=== PATIENT | female | born 1960 | race Caucasian/White ===

== ENCOUNTER 2016-07-18 06:40 | Outpatient (CLI) | payer MEDICARE, MEDICAID ==
[~2016-07-18] VITALS: Ht 165.1 cm; Wt 64.1 kg
[2016-07-18] VITALS (13 sets, daily range): BP systolic 143–164; BP diastolic 76–96; PULSE 66–82
[~2016-07-18 06:40] MED LIST: ASPIRIN E.C. 8181 MG PO; CARDIZEM 30MG T30 MG PO; DESYREL DIVIDO150 M1 PO; KLONOPIN 1MG1 MG PO; LYRICA 100MG C100 M1 PO; PRILOSEC 20MG20 MG PO; PRISTIQ100 MG PO; SOMA 350MG350 MG/TAB PO; ULTRAM 50MG TAB50 MG PO; ZESTRIL 10MG10 MG PO
== END 2016-07-18 11:33 | disposition home or self-care (01) ==
LOC: COL.RAD 06:40
DX: R91.8 Other nonspecific abnormal finding of lung field (principal)
CPT/HCPCS: J2250; J3010

== ENCOUNTER 2019-11-10 00:11 | Observation (INO) | payer MEDICARE, MEDICAID ==
[~2019-11-10] VITALS: Ht 165.1 cm; Wt 64.0 kg
[2019-11-10] VITALS (9 sets, daily range): BP systolic 109–122; BP diastolic 48–65; PULSE 80–91; TEMP 98–99.8
[~2019-11-10 00:11] MED LIST changes: +CLEOCIN HCL300 MG PO; +FERROUS SU325 MG/TAB PO
[2019-11-10 00:45] LABS: BASO % 0.3 % (0.0-2.0); EOS # 0.1 (0.0-0.7); EOS % 0.4 % (0-4.0); GRAN # 8.2 (1.4-6.5); GRAN % 70.6 % (42.2-75.2); LYMPH # 2.9 (1.2-3.4); LYMPH % 24.7 % (20.0-51.0); MEAN CELL VOLUME 96 fl (80.0-100.0); MEAN CORPUSCULAR HGB CONC 32 g/dl (33.0-37.0); MEAN PLATELET VOLUME 10.5 fl (7.4-10.4); MONO # 0.4 (0.1-0.6); MONO % 3.6 % (1.7-9.3); PLATELET COUNT 249 K/mm3 (130-400); RED BLOOD COUNT 2.49 M/mm3 (4.10-5.30)
[2019-11-10 00:46] LABS: HEMOGLOBIN 7.6 g/dl (12.5-16.0); MEAN CORPUSCULAR HEMOGLOBIN 31 pg (27.0-31.0)
[2019-11-10 02:41] LABS: PROTHROMBIN TIME 10.9 SECONDS (9.7-12.8)
[2019-11-10] MEDS ORDERED: PRINIVIL20 MG PO (02:44)
[2019-11-10 02:46] LABS: CALCIUM 8.4 mg/dL (8.4-10.2); CREATININE, serum 0.6 (0.52-1.25); POTASSIUM 3.2 mmol/L (3.4-5.0)
[2019-11-10] MEDS ORDERED: ZANAFLEX CAPSULE4 MG PO (03:19)
--- NOTE | 2019-11-10 03:30 | NUR ---
Report received from ED nurse for Pt who is transferring to medical unit due to anemia and persistent bloody nose.
--- NOTE | 2019-11-10 04:15 | NUR ---
Pt admitted to the medical unit for persistent bloody nose and reduced HgB. Pt is A&Ox4 and is easily able to make wants/needs known. Pt is knowledgeable of her medication regimen and medication reconciliation performed with last doses verified. Pt is able to transfer to her feet in one movement without losing balance. IV started in Pt left forearm with 22g on first attempt and noted to flush easily with blood return. Pt oriented to room and call light system. Pt presents with no s/s of distress and no reports of pain, wants, or needs. Call light at Pt side. Will continue to monitor.
[2019-11-10 06:47] LABS: HEMOGLOBIN 6.9 g/dl (12.5-16.0)
[2019-11-10 06:48] LABS: HEMATOCRIT 20.9 % (37.0-47.0)
--- NOTE | 2019-11-10 07:02 | NUR ---
Pt REPORT GIVEN TO ROGELIO VELAZQUEZ AT BEDSIDE
--- NOTE | 2019-11-10 08:00 | NUR ---
Assessment complete. Patient A&Ox4, denies pain and discomfort. Just stating that "she is hungry" VSS. INT CDI. No current bleeding from nose. Patient wanting to know what the plan is for her. No further needs expressed from patient. Call light within reach
--- NOTE | 2019-11-10 12:47 | NUR ---
SW met with Patient in doorway of patient's room. Patient lives in [place] alone, however listed her Sister in Law Erendira as care support(no number provided), as well her niece Darcy [phone]. Patient indicated that both are also her EMR. She reports that she does not currently have a DPOA. SW left DPOA form for her to read, and instructs on filling out the form. PAtient denied the use of DME, and indicated that her PCP is Mya Stephenson([facility]), and Dr. Walter, with no upcoming appointments. Aptient indicated that she gets her medications from [facility] in [place] with no concerns. Patient declined [facility] at this time. Referral was submitted from provider. SW will connect with provider for recommendations.
--- NOTE | 2019-11-10 17:04 | NUR ---
Blood transfusion started. Patients VS being monitored. VSS. IV CDI, fluids infusing. Patient tolerating well. Call light within reach
--- NOTE | 2019-11-10 18:35 | NUR ---
Patient still receiving a blood transfusion. Sitting up eating dinner in bed. VSS. IV CDI. Tolerating transfusion. VS being monitored. No further needs expressed from patient. Call light within reach
[2019-11-10 21:23] LABS: HEMATOCRIT 24.6 % (37.0-47.0); HEMOGLOBIN 8.1 g/dl (12.5-16.0)
[2019-11-11 00:07] VITALS: BP 143/66; PULSE 87; TEMP 99.1
--- NOTE | 2019-11-11 03:32 | NUR ---
Patient finished up unit of blood upon arrival to shift. Vitals stable. Hemoglobin noted to be 8.1 an hour after blood transfusion. Hortencia Epperson APRN notified about new hemoglobin level and was okay with patient only getting one unit. Labs to be redrawn in AM. Patient has denied any further needs. Independent in the room. Will continue to monitor patient.
[2019-11-11 03:33] VITALS: BP 128/62; PULSE 79; TEMP 99.1
[2019-11-11 07:19] LABS: BASO % 0.6 % (0.0-2.0); EOS % 0.6 % (0-4.0); GRAN # 3.3 (1.4-6.5); GRAN % 48.9 % (42.2-75.2); LYMPH % 45.2 % (20.0-51.0); MEAN CELL VOLUME 95 fl (80.0-100.0); MEAN CORPUSCULAR HGB CONC 32 g/dl (33.0-37.0); MEAN PLATELET VOLUME 11.3 fl (7.4-10.4); MONO # 0.3 (0.1-0.6); MONO % 4.6 % (1.7-9.3); PLATELET COUNT 323 K/mm3 (130-400); RED BLOOD COUNT 2.89 M/mm3 (4.10-5.30); REDCELL DISTRIBUTION WIDTH-CV 14.1 % (11.5-14.5)
[2019-11-11 07:21] LABS: HEMATOCRIT 27.5 % (37.0-47.0); HEMOGLOBIN 8.9 g/dl (12.5-16.0); MEAN CORPUSCULAR HEMOGLOBIN 31 pg (27.0-31.0)
[2019-11-11 07:31] LABS: CALCIUM 8.6 mg/dL (8.4-10.2); CREATININE, serum 0.75 (0.52-1.25); POTASSIUM 4.3 mmol/L (3.4-5.0)
[2019-11-11 07:40] VITALS: BP 140/62; PULSE 85; TEMP 98.4
[2019-11-11 11:25] VITALS: BP 131/58; PULSE 68; TEMP 98.7
--- NOTE | 2019-11-11 14:56 | NUR ---
PT HAD AN UNEVENTFUL DAY. H&H WAS WNL. PT WAS DISCHARGED HOME. NO C/O PAIN OR DISCOMFORT. PT ESCORTED OUT AT 1340
== END 2019-11-11 13:40 | disposition home or self-care (01) ==
LOC: COL.ER 00:11 → MEDICAL 02:06
PROVIDERS: Emergency Medicine; Nurse Practitioner Family; ADMIT Student in an Organized Health Care Education/Training Program
DX: R04.0 Epistaxis (principal); D50.0 Iron deficiency anemia secondary to blood loss (chronic); I10 Essential (primary) hypertension; K21.9 Gastro-esophageal reflux disease without esophagitis; F32.9 Major depressive disorder, single episode, unspecified; F41.9 Anxiety disorder, unspecified; G47.00 Insomnia, unspecified; D72.829 Elevated white blood cell count, unspecified; J43.9 Emphysema, unspecified; G89.29 Other chronic pain; M54.9 Dorsalgia, unspecified; M54.10 Radiculopathy, site unspecified; F17.210 Nicotine dependence, cigarettes, uncomplicated; Z79.899 Other long term (current) drug therapy; Z88.5 Allergy status to narcotic agent; Z88.8 Allergy status to other drugs, medicaments and biological substances
CPT/HCPCS: J7050; P9016